=== PATIENT | male | born 1985 | race Hispanic/Latino ===

== ENCOUNTER 2018-12-10 16:59 | Emergency (ER) | payer OTHER ==
[~2018-12-10] VITALS: Ht 175.3 cm; Wt 86.2 kg
[2018-12-10] MEDS ORDERED: AZITHROMYCIN 250 MG TAB PO ONE (17:17)
[2018-12-10 17:27] LABS: BILIRUBIN,URINE NEGATIVE (NEGATIVE); CLARITY,URINE CLEAR (CLEAR); COLOR,URINE YELLOW (YELLOW); KETONES,URINE NEGATIVE (NEGATIVE); LEUKOCYTE ESTERASE ,URINE NEGATIVE (NEGATIVE); NITRITE,URINE NEGATIVE (NEGATIVE); PROTEIN,URINE DIPSTICK TRACE (NEGATIVE); URINE UROBILINOGEN 1 mg/dL (0.2 - 1)
[2018-12-10] MEDS ORDERED: CEFTRIAXONE SOD 250 MG VIAL IM ONE (17:30)
[2018-12-10] MEDS ORDERED: ONDANSETRON HCL 4 MG ORAL DISINTEGRATING TAB PO ONE (17:30)
[2018-12-10 17:39] LABS: BACTERIA,URINE FEW /HPF; EPITHELIAL CELLS,URINE FEW /LPF; WBC,URINE (MAN) 0-5 /HPF (0-5)
[2018-12-10] MEDS ORDERED: LIDOCAINE HCL 1% 2 ML AMP INJ ONE (18:30)
[2018-12-10 20:07] VITALS: BP 108/73
== END 2018-12-10 20:10 | disposition home or self-care (01) ==
LOC: ER 16:59
DX: Z20.2 Contact with and (suspected) exposure to infections with a predominantly sexual mode of transmission (principal)
CPT/HCPCS: 81001; 87086; 99283; J0696; J2001; Q0162